=== PATIENT | female | born 1955 | race Caucasian/White ===

== ENCOUNTER → 2016-05-10 | Outpatient (CLI) | payer SELFPAY ==
--- NOTE | 2016-05-11 12:57 | Diagnostic Imaging Report ---
Indication: SCREEN Technique: Bilateral Craniocaudal and mediolateral oblique views, conventional and implant displaced were obtained. Comparison: 10/31/2014, 04/18/2013, 02/23/2012 Findings: Are bilateral subglandular breast implants which appear intact. The breasts demonstrate scattered fibroglandular densities. No parenchymal asymmetry nor architectural distortion. There are benign calcifications bilaterally. No dominant masses nor suspicious clustered microcalcifications. No skin thickening nor nipple retraction. No axillary adenopathy. No significant interim change. Impression: No mammographic evidence of malignancy. Routine annual rescreening recommended. BI-RADS category 2-benign. Breast density BI-RADS type B.
== END | disposition home or self-care (01) ==
LOC: MAMMO 13:27
DX: Z12.31 Encounter for screening mammogram for malignant neoplasm of breast (principal)
CPT/HCPCS: 77067